=== PATIENT | female | born 1970 ===

== ENCOUNTER 2018-01-31 19:19 | Emergency (ER) | payer OTHER ==
[2018-01-31 19:43] VITALS: BP 135/82; PULSE 111; TEMP 98.3; O2SAT 95
--- NOTE | 2018-01-31 21:05 | C.PDOC ---
History Of Present Illness 47 yo female come in for evaluation of left ankle pain, swelling over lateral malleolus gradually developed for past few hours after sustained twisting injury to Left ankle and fell down. Pt reports, pain is localized over Left ankle, worse with ambulation. Otherwise, pt denies obvious deformity, weakness, sensory or vascular deficits to Left foot, denies any other injury related to fall. Ambulate to ED, favoring left foot. - HPI Time Seen by Provider: 01/31/18 19:35 Chief Complaint (Nursing): Trauma History Per: Patient Past Medical History Reviewed: Historical Data, Nursing Documentation, Vital Signs Vital Signs: Last Vital Signs Temp 98.3 F 01/31/18 19:38 Pulse 111 H 01/31/18 19:38 Resp 14 01/31/18 19:38 BP 135/82 01/31/18 19:38 Pulse Ox 95 01/31/18 19:38 - Medical History PMH: Anxiety Family History: States: No Known Family Hx - Social History Hx Alcohol Use: No Hx Substance Use: No - Immunization History Hx Tetanus Toxoid Vaccination: No Hx Influenza Vaccination: No Hx Pneumococcal Vaccination: No Review Of Systems Except As Marked, All Systems Reviewed And Found Negative. Musculoskeletal: Positive for: Foot Pain. Negative for: Neck Pain, Back Pain Skin: Negative for: Bruising Neurological: Negative for: Weakness, Numbness, Altered Mental Status, Headache, Dizziness Physical Exam - Physical Exam Appears: Well, Non-toxic, No Acute Distress Skin: Normal Color, Warm, No Ecchymosis Head: Atraumatic, Normacephalic Eye(s): bilateral: PERRL Nose: No Flaring, No Deformity, No Tenderness Oral Mucosa: Moist Chest: Symmetrical, No Deformity, No Tenderness Gastrointestinal/Abdominal: Soft, No Tenderness Back: No Vertebral Tenderness, No Paraspinal Tenderness Extremity: Normal ROM (decrease on left ankle flexion/extension due to pain. NO neurovascular deficits distally to injury.), Tenderness (lateral malleolus left ankle with mod edema. NO palpable deformity.), Capillary Refill (less than 2sec to Left foot), No Deformity Pulses: Left Femoral: Normal, Left Dorsalis Pedis: Normal Neurological/Psych: Oriented x3, Normal Speech, Normal Motor, Normal Sensation, Normal Reflexes ED Course And Treatment O2 Sat by Pulse Oximetry: 95 - Other Rad Left tib/fib, Left foot X-Ray: Interpreted by Me, Viewed By Me Interpretation: (-) acute fx or dislocation Left ankle X-Ray: Interpreted by Me, Viewed By Me Interpretation: (+) spiral fx distal fibula Progress Note: On re-eval, pt is afebrile, hemodynamicaly stable. head: AT/NC. Neck: Suple, (-) midline tenderness. Neurologicaly intact. left ankle: tenderness, mild edema over lateral malleolus, no palpable deformity. No neurovascular deficits. Imaging review (+) spiral fx distal fibula. Fiber glass splint applied, crutches provided for ambulation. Pt advised and ref. to F/u with Podiatry Clinic on Saturday for re-eval. POdiatry resident was notified about patient, agrees with plan. Orthopedic Time Out: Side verified, Site verified, Patient ID confirmed Procedure: Splint Type: Posterior Location: Left, Leg, Foot Consent obtained: Verbal Performed by: Mid-level Provider Diagnosis: Fracture Type: Closed Location: Left, Distal Bone: Fibula Disposition Counseled Patient/Family Regarding: Studies Performed, Diagnosis, Need For Followup, Rx Given - Disposition Referrals: Podiatry Clinic [Outside] Disposition: HOME/ ROUTINE Disposition Time: 21:00 Condition: STABLE Additional Instructions: None-weight bearing Take pain medication as prescribed Follow up with Podiatry on Saturday from NOON-3PM for re-evaluation and further treatment return to ED if any worsening or new changes. Prescriptions: traMADol [Ultram] 50 mg PO TID #10 tab Instructions: Ankle Fracture (DC) - Clinical Impression Clinical Impression: Ankle fracture
[2018-01-31 22:14] VITALS: RESP 20
--- NOTE | 2018-01-31 22:44 | CP.PCM.CON ---
History of Present Illness - History of Present Illness History of Present Illness: podiatry consult note for Dr. Ernandez, 47 yo female with anxiety presents to the ed for evaluation of left ankle pain, swelling over lateral malleolus gradually developed for past few hours after sustained twisting injury to Left ankle and fell down. Pt reports, pain is localized over Left ankle, worse with ambulation. Otherwise, pt denies obvious deformity, weakness, sensory or vascular deficits to Left foot, denies any other injury related to fall. denies any other pedal complains. Past medical history: denies Past surgical history: denies allergies; pollen social history: denies smoking or drinking alcohol Past Patient History - Infectious Disease Hx of Infectious Diseases: None - Past Social History Smoking Status: Never Smoked - GENITOURINARY/GYNECOLOGICAL Other/Comment: hx ectopic - PSYCHIATRIC Hx Anxiety: Yes Hx Substance Use: No - SURGICAL HISTORY Hx Surgeries: Yes Hx Tubal Ligation: Yes Other/Comment: cyst removal (left). Sinus sx - ANESTHESIA Hx Anesthesia: Yes Hx Anesthesia Reactions: No Meds Home Medications: Home Medication List Medication Instructions Recorded Confirmed Type traMADol [Ultram] 50 mg PO TID #10 tab 01/31/18 Rx Allergies/Adverse Reactions: Allergies Allergy/AdvReac Type Severity Reaction Status Date / Time pollen extracts Allergy Verified 01/31/18 19:43 Physical Exam - Constitutional Appears: Well, Non-toxic, No Acute Distress - Head Exam Head Exam: ATRAUMATIC, NORMOCEPHALIC - Extremities Exam Additional comments: Left loewr extremity exam; Vascular; DP/PT 2/4, CFT <3 secs x5, TG warm to warm, minimal nonpitting edema noted perimalleolar, minimal erythema noted to the ankle derm; no open lesions, no break in skin, no ecchymosis, minimal erythema noted to the ankle, no clinical signs of infection neuro: protective sensation intact via ipswich 07/24 ortho: no pain on medial malleolus, no pain on achilles tendon palpation, no with rom of foot joints, pain on palpation to the lateral malleolus, pain on palpation the ankle ROM, no pain with calf squeeze. - Neurological Exam Neurological exam: Alert, Oriented x3 - Psychiatric Exam Psychiatric exam: Normal Affect, Normal Mood - Skin Skin Exam: Normal Color Results - Vital Signs Recent Vital Signs: Last Vital Signs Temp 98.3 F 01/31/18 19:38 Pulse 111 H 01/31/18 19:38 Resp 20 01/31/18 22:14 BP 135/82 01/31/18 19:38 Pulse Ox 95 01/31/18 21:50 Assessment & Plan - Assessment and Plan (Free Text) Assessment: 47 yo female with no significant past medical history presents to the ED with pain in the left ankle; posteriorly displaced spiral oblique fibular fracture. Plan: patient seen and evaluated history and plan discussed in detail with the attending, Dr ernandez x-rays reviewed; posterior displaced spiral oblique fibular fracture; no other bony abnormalities noted patient educated on bone healing period- 6-8 weeks patient advised to remain nWB with the use of crutches patient educated on RICE patients left lower extremity dressed with rios compression and posterior splint patient to keep the dressing d/c/i patient to take ibuprofen prn for the pain patient showed verbal understands; all questions were answered patient to follow up with Dr. ernandez within a week in her [place] office. thank you for the consult.
--- NOTE | 2018-02-01 08:37 | RAD ---
PROCEDURE: Left foot radiographs Left ankle radiographs Left tibia fibula radiographs HISTORY: injury COMPARISON: None available. FINDINGS: BONES: Spiral fracture deformity of the distal fibula with intra-articular extension. JOINTS: No dislocation. SOFT TISSUES: Marked soft tissue swelling. No evidence of radiopaque foreign body. OTHER FINDINGS: None. IMPRESSION: Marked soft tissue swelling. Spiral fracture deformity of the distal fibula with intra-articular extension.
== END 2018-01-31 22:14 | disposition home or self-care (01) ==
LOC: C.ER 19:19 → MERGE 19:19 → C.ER 22:14
DX: S82.442A Displaced spiral fracture of shaft of left fibula, initial encounter for closed fracture (principal); X50.1XXA Overexertion from prolonged static or awkward postures, initial encounter

== ENCOUNTER 2018-02-10 06:17 | Day surgery (SDC) | payer OTHER ==
[2018-02-10] MEDS ORDERED: Midazolam 2 MG/2 ML VIAL ONE (07:31)
[2018-02-10] MEDS ORDERED: Propofol 10 mg/ml Inj (20 ML) ONE (07:31)
[2018-02-10] MEDS ORDERED: Bacitracin 50,000 UNIT in Sodium Chloride 0.9% Irrig 1,000 ML IR SCH (07:45)
[2018-02-10] MEDS ORDERED: ceFAZolin IV 1 gm in Dextrose 2 GM/100 ML BAG IVPB ONE (08:19)
[2018-02-10] MEDS ORDERED: Rocuronium 10 mg/ml (5 ml) ONE (09:38)
[2018-02-10] MEDS ORDERED: Neostigmine Methylsulfate 3mg/3ml Syringe IV ONE (09:38)
[2018-02-10] MEDS ORDERED: Lidocaine Hydrochloride 5 ML INJ ONE (09:38)
[2018-02-10] MEDS ORDERED: Bupivacaine 0.25% 20 ML INJ IJ ONE ×2 (09:53→10:35)
[2018-02-10] MEDS ORDERED: Lidocaine Hydrochloride 10 ML INJ ONE (09:53)
--- NOTE | 2018-02-10 10:13 | PCM.SURG1 ---
Surgeon's Initial Post Op Note - Surgeon's Notes Surgeon: Dr. Precious Longo Electrician Supervisor Airplane: Dr. Catrachita Blake PGY-3, Dr. Jass Licona PGY-3, Dr. Loyda Smith PGY-2 Type of Anesthesia: General Endo, Block Regional Anesthesia Administered By: Dr. Carlos YOON Pre-Operative Diagnosis: left fibula fracture Operative Findings: see dictation. I: 10cc 0.5% Marcaine plain to saphenous nerve post-operatively. M: 2-0 Vicryl, 3-0 Vicryl, 4-0 Monocryl Post-Operative Diagnosis: same Operation Performed: left fibula open reduction with internal fixation Specimen/Specimens Removed: none Estimated Blood Loss: EBL {In ML}: 10 Blood Products Given: N/A Drains Used: No Drains Post-Op Condition: Good Date of Surgery/Procedure: 02/10/18 Time of Surgery/Procedure: 10:14
[2018-02-10] MEDS ORDERED: Oxycodone/Acetaminophen 5/325 mg Tab PO PRN ×2 (10:16)
[2018-02-10] MEDS: HYDROmorphone 0.5 mg/0.5 ml ISec IVP PRN ×2 (10:31→10:48)
--- NOTE | 2018-02-10 10:58 | RAD ---
Date of service: 02/10/2018 PROCEDURE: Left Ankle Radiographs. HISTORY: s/p left ankle surgery COMPARISON: Left ankle x-rays 01/31/2018 FINDINGS: BONES: Overlying cast material limits evaluation of fine bony detail.Again seen is a distal fibular fracture, now stabilized by surgical sideplate and screws and in anatomic alignment. No evidence of hardware failure or loosening. JOINTS: No dislocation seen. Bony articulations appear maintained. Ankle mortise maintained. Talar dome intact SOFT TISSUES: Soft tissue swelling noted about the ankle. OTHER FINDINGS: None. IMPRESSION: Status post surgical fixation of distal fibular fracture as above.
[2018-02-10 12:58] VITALS: TEMP 97.7
--- NOTE | 2018-02-10 13:11 | PCM.ANESB2 ---
Popliteal Nerve Block - Popliteal Nerve Block Date of Procedure: 02/10/18 Anesthesiologist: Pradeep Pre-Procedure Diagnosis: s/p left fibula ORIF Post-Procedure Diagnosis: same Procedure Performed: Popliteal Nerve Block Left - Procedure Popliteal Nerve Block: This procedure was explained to the patient that it is for post-operative pain management. Consent was obtained after a thorough discussion with the patient regarding the benefits and possible complications of local anesthetic block of the sciatic nerve at the popliteal level. Patient lying on right lateral decubitus position. Time-out was held with the PACU nurse to confirm the appropriate block. After applying oxygen by nasal cannula, patient's operative leg was gently raised and supported and the groove in between the biceps femoris and vastus lateralis muscles was carefully palpated. The skin approximately 8cm above the popliteal crease was then marked. The ultrasound transducer was then applied to the posterior thigh approximately 8cm above the popliteal crease in the transverse plane and the sciatic nerve before its division was visualized lateral to the popliteal artery and in between the bicep femoris and semimembranosus/semitendinosus muscles. After identification, the lateral portion of the thigh was prepped with chloraprep and Lidocaine 1% was injected subcutaneously for topical anesthesia. At this point, a # 21 gauge Stimuplex insulated 4 inch needle was inserted into pre-marked area and advanced in a perpendicular direction. The needle was inserted above the ultrasound transducer in-plane towards the sciatic nerve in a [id number] direction. Needle advancement was performed carefully under direct ultrasound visualization. Nerve stimulator was used and dorsiflexion of the left foot was elicited at a current of 0.5MA. After repeated negative aspiration, 2cc of 0.25% Bupivacaine was injected and this was flowed with 28 cc of 0.25% Bupivacaine. Under ultrasound guidance the local anesthetics were observed surrounding sciatic nerve . The needle was removed intact and sterile dressing was applied. The patient tolerated the popliteal nerve block well with stable vital signs.
[2018-02-10 13:18] VITALS: BP 105/56; PULSE 85; RESP 15; O2SAT 95
--- NOTE | 2018-02-12 03:31 | OP ---
PROCEDURE DATE: 02/10/2018 A 47-year-old female. PREOPERATIVE DIAGNOSIS: Left foot fibular fracture. POSTOPERATIVE DIAGNOSIS: Left foot fibular fracture. PROCEDURE PERFORMED: Left fibular open reduction and internal fixation. SURGEON: Precious Longo DPM ASSISTANTS: Catrachita Blake DPM, PGY-3; Jass Licona DPM, PGY-3; and Loyda Graham DPM, PGY-2 ANESTHESIOLOGIST: Dr. Gonzalez ANESTHESIA: General with popliteal block. INDICATIONS: The patient is a 47-year-old female who sustained a left fibular fracture. The patient is being treated by Dr. Longo in the office where she has exhausted multiple forms of conservative treatment. The patient agreed to undergo intervention at this time. All risks, benefits, and possible complications, proposed procedure were explained the patient at length. The patient verbalized understanding and wishes to proceed. All questions were answered. No guarantees were given or implied. Consent was signed. NPO status was confirmed prior to bringing the patient to the operating room. OPERATIVE PROCEDURE: The patient was brought into the operating room and placed on the operating room table in supine position. A well-padded thigh tourniquet was applied to the patient's left thigh. Once general anesthesia was achieved, the left foot was then prepped and draped in the usual sterile manner, and the procedure began. PROCEDURE #1: Left fibular open reduction and internal fixation: At this time, attention was directed to the lateral aspect of the left ankle where the fibular fracture was present. At this time, with the use of the #15 blade, approximately 7 cm in length linear incision was created over the lateral aspect of the fibula of the left lower extremity. The incision was carried from proximal to distal to the level of the malleolus. Upon completion of the incision, all neurovascular structures found were retracted, ligated that with Bovie as necessary. The initial incision was created from the dermal layer of the periosteum with minimal soft tissue dissection. At this time, with the use of periosteal elevator, the periosteum was resected free from osseous attachments, and the fibular fracture was noted to be present in oblique nature. Upon dissection of surrounding tissues at the fracture site, the fracture fragment was distracted distally. The fracture site was irrigated. We remove all hemorrhagic tissue and coagulated well. At this time with the use of a bone clamp, the fracture site in a more anatomically corrected position was noted increased length of the fibula and gnosticism of the ankle mortise during the procedure. Upon establishment of corrected length of the fibula, the fibular fracture was clamped, and a 3.5 cortex screw was utilized for interfragmentary compression. At this time, the plate was placed over the fracture site, and the fragment was fixated with a K-wire. Upon completion of this procedure, the bone clamp was then removed. It was noted that the fracture site was more aligned. At this time, a Synthes 7-hole one third fibular plate was utilized on the anterior aspect and lateral aspect of the fibula and was fixated with Synthes 3.5 x 12 x 14 x 16 another 12-mm screw and also a 4 x 14 mm screw and a 3.5 locking 12-mm screw. The interfragmentary screw was then removed. Upon completion of the fibular reduction and fixation, the surgical site was irrigated with copious amounts of normal sterile saline. Then, 1 mL of DBX was utilized. The surgical site was then reapproximated and then a deep closure was achieved with #2-0 and 3-0 Vicryl. Subcutaneous tissue was reapproximated with #3-0 Vicryl, and then the skin was reapproximated with #4-0 Monocryl in a subcuticular pattern. Postoperative dressings included Steri-Strips, 4x4s, Afshan and a well-padded posterior splint. Postoperative induction of 10 mL of 0.5% Marcaine plain was given in a local block fashion. POSTOPERATIVE CONDITION: The patient tolerated the anesthesia and procedure well with no apparent complications or complaints. The patient was escorted from the operating room to the recovery room with vital signs stable and neurovascular status intact. The patient will follow up with Dr. Longo in her office on an outpatient basis. Catrachita Blake DPM Precious Longo DPM [facility] # [id number] MTDDiamond
== END 2018-02-10 13:50 | disposition home or self-care (01) ==
LOC: C.SDS 06:17
PROVIDERS: ATTEND Podiatrist Foot & Ankle Surgery
DX: S82.62XA Displaced fracture of lateral malleolus of left fibula, initial encounter for closed fracture (principal); X58.XXXA Exposure to other specified factors, initial encounter
CPT/HCPCS: 27792; 73600; 97116; 97161; C1713; G8978; G8979; G8980; J0690; J1100; J1170; J2250; J2405; J2704; J2710; J3010